=== PATIENT | female | born 1940 | race Two or more races ===

== ENCOUNTER 2019-01-18 09:53 | Outpatient (CLI) | payer OTHER ==
[~2019-01-18 09:53] MED LIST: AMOX1TAB5 PO; CATAFLAM50 MG PO
== END 2019-01-18 10:04 | disposition home or self-care (01) ==
LOC: MRI 09:53
DX: H53.133 Sudden visual loss, bilateral (principal); R47.81 Slurred speech; C71.9 Malignant neoplasm of brain, unspecified; R55 Syncope and collapse
CPT/HCPCS: 70553; A9579; 70552

== ENCOUNTER 2019-04-11 08:22 | Outpatient (CLI) | payer OTHER | END 2019-04-11 08:31 | disposition home or self-care (01) | LOC: TOM 08:22 | DX: G45.3 Amaurosis fugax (principal) | CPT/HCPCS: 70496; 70498; Q9965 ==

== ENCOUNTER 2020-06-20 11:02 | Outpatient (CLI) | payer OTHER | END 2020-06-20 11:05 | disposition home or self-care (01) | LOC: SONOGRAMA 11:02 | PROVIDERS: ATTEND Pathology Anatomic Pathology & Clinical Pathology | DX: E04.1 Nontoxic single thyroid nodule (principal) ==

== ENCOUNTER 2023-12-02 15:09 | Inpatient (IN) | payer OTHER ==
[~2023-12-02] VITALS: Ht 147.3 cm; Wt 45.4 kg
[2023-12-02] MEDS ORDERED: PANTOPRAZOLE SO20 MG PO (15:41)
[2023-12-02] MEDS ORDERED: METROPOLOL (15:41)
[2023-12-02] MEDS ORDERED: BETIMOL5 ML (15:41)
[2023-12-02] MEDS ORDERED: ATORVASTATIN CA10 MG PO (15:42)
[2023-12-02] MEDS ORDERED: PRESERVISION A1 EAC1 (15:42)
[2023-12-02] MEDS ORDERED: PLAVIX75 MG (15:42)
--- NOTE | 2023-12-02 15:45 | NUR ---
PTE ALERTA Y ORIENTADA X3, VIENE CON REFERIDO DE LA DRA. MAKI POR LEFT FEMORAL FRACTURE. SE PRESENTA REFERIDO A . SE PAO SV Y SE UBICA
[2023-12-02] MEDS ORDERED: 0.9 % SODIUM CHLORIDE 1,000 ML IV SCH ×2 (17:15→17:30)
[2023-12-02] MEDS ORDERED: MORPHINE SULFATE 4 MG/ML CARTRIDGE IV ONE (17:15)
[2023-12-02] MEDS ORDERED: FAMOTIDINE/PF 20 MG in 0.9 % SODIUM CHLORIDE 8 ML IV PUSH SCH (17:20)
--- NOTE | 2023-12-02 17:25 | NUR ---
SE MANEJA PTE, DEION DOCUMENTACION DE ADMISION
[2023-12-02] MEDS ORDERED: ACETAMINOPHEN 500 MG GEL..CAP PO PRN (17:30)
[2023-12-02] MEDS ORDERED: ONDANSETRON HCL 4 MG in 0.9 % SODIUM CHLORIDE 50 ML IV PRN (17:30)
[2023-12-02] MEDS ORDERED: OxyCODONE HCL/APAP UD (PERCOCET) PO PRN (17:30)
[2023-12-02 18:02] LABS: PH,URINE 7.5 (5.0-8.0); URINE APPEARANCE Turbid; URINE BILIRRUBIN Negative (NEGATIVE); URINE BLOOD Moderate; URINE COLOR Yellow; URINE GLUCOSE Negative (NEGATIVE); URINE LEUKOCYTE Large; URINE NITRATE Negative; URINE PROTEIN Trace (NEGATIVE)
[2023-12-02 18:06] LABS: URINE EPITHELIAL CELLS 10.8 uL (0.0-38.8); URINE RBC 419.5 uL (0.0-20.8)
[2023-12-02 18:15] LABS: HEMATOCRIT 34.7 % (36.0-45.00); HEMOGLOBIN 11.6 g/dL (12.0-15.00); MEAN CELL VOLUME 99.2 fL (80.00-100.00); MEAN CORPUSCULAR HGB CONC 33.3 g/dl (32.0-36.0); PLATELET COUNT 423 K/uL (150-450); RED CELL DISTRIBUTION WIDTH 13.4 % (11.5-14.5)
[2023-12-02 18:37] LABS: URINE BACTERIA > 9821.2 uL (0.0-1933); URINE CRYSTALS FEW /HPF
[2023-12-02 18:50] LABS: BILIRUBIN TOTAL 0.89 mg/dL (0.3-1.2); CREATININE SERUM 0.78 mg/dL (0.55-1.02); GFR 70.36; GLOBULINA 3.5 G/DL (2.4-3.5); POTASSIUM 3.63 mEq/L (3.5-5.1); TOTAL PROTEIN 7.5 gm/dL (6.4-8.2)
[2023-12-02 19:43] LABS: INR 1.05
[2023-12-02] MEDS ORDERED: CEFTRIAXONE SODIUM 2,000 MG in 0.9 % SODIUM CHLORIDE 100 ML IV SCH (21:15)
[2023-12-02] MEDS ORDERED: CEFTRIAXONE SODIUM 2,000 MG VIAL ONE (21:58)
[2023-12-03] MEDS ORDERED: FAMOTIDINE/PF 20 MG/2 ML VIAL ONE (08:27)
[2023-12-03] MEDS ORDERED: METOPROLOL SUCCINATE 25 MG TAB.SR.24H PO SCH (09:00)
[2023-12-03] MEDS ORDERED: ATORVASTATIN CALCIUM 10 MG TABLET PO SCH (09:00)
[2023-12-03] MEDS ORDERED: CEFAZOLIN SODIUM 1,000 MG VIAL IV SCH (11:00)
[2023-12-03] MEDS ORDERED: VANCOMYCIN HCL 1,000 MG VIAL ONE (12:12)
[2023-12-03] MEDS ORDERED: TRANEXAMIC ACID 100MG/1ML (1000MG) AMPUL IV ONE (12:15)
[2023-12-03] MEDS ORDERED: CEFAZOLIN SODIUM 1,000 MG VIAL ONE (13:59)
[2023-12-03] MEDS ORDERED: PANTOPRAZOLE SODIUM 40 MG TABLET.DR PO SCH (14:19)
[2023-12-03] MEDS ORDERED: MEPERIDINE HCL/PF 50 MG/ML VIAL IM PRN (14:30)
[2023-12-03] MEDS ORDERED: TRAMADOL HCL 50 MG TABLET PO PRN (14:30)
[2023-12-03] MEDS ORDERED: PROMETHAZINE HCL 50 MG/ML AMPUL IM PRN (14:30)
[2023-12-03] MEDS ORDERED: ONDANSETRON HCL 2 MG/ML VIAL IV PRN (14:30)
[2023-12-03] MEDS ORDERED: ONDANSETRON 4 MG TAB.RAPDIS PO PRN (14:30)
[2023-12-03] MEDS ORDERED: TRANEXAMIC ACID 100MG/1ML (1000MG) AMPUL IV SCH ×2 (14:45)
[2023-12-03] MEDS ORDERED: ACETAMINOPHEN 325 MG TABLET PO SCH (17:00)
[2023-12-04] MEDS ORDERED: RIVAROXABAN 10 MG TAB PO SCH (09:00)
[2023-12-04 10:48] LABS: HEMATOCRIT 33.8 % (36.0-45.00); HEMOGLOBIN 11.5 g/dL (12.0-15.00); MEAN CELL VOLUME 97.2 fL (80.00-100.00); MEAN CORPUSCULAR HGB CONC 33.9 g/dl (32.0-36.0); PLATELET COUNT 341 K/uL (150-450); RED BLOOD COUNT 3.48 M/uL (4.00-6.00); RED CELL DISTRIBUTION WIDTH 13.5 % (11.5-14.5)
[2023-12-05] MEDS ORDERED: FAMOTIDINE/PF 20 MG/2 ML VIAL ONE (07:28)
[2023-12-05] MEDS ORDERED: SENNA/DOCUSATE SODIUM 1 TAB TABLET PO SCH (09:00)
[2023-12-07] MEDS ORDERED: FAMOtidine 20 MG TABLET PO SCH (09:00)
== END 2023-12-07 13:48 | DRG 482 ==
LOC: ER 15:09 → SURH 19:10
PROVIDERS: Emergency Medicine; General Practice; Orthopaedic Surgery; ADMIT Internal Medicine; ATTEND Internal Medicine
PROC: 0QS706Z Reposition Left Upper Femur with Intramedullary Internal Fixation Device, Open Approach (ICD-10-PCS; principal; 2023-12-03 11:00)
DX: S72.002A Fracture of unspecified part of neck of left femur, initial encounter for closed fracture (principal)

== ENCOUNTER 2023-12-30 07:51 | Outpatient (CLI) | payer OTHER ==
[~2023-12-30 07:51] MED LIST changes: +ATORVASTATIN CA10 MG PO; +BETIMOL5 ML; +METROPOLOL; +PANTOPRAZOLE SO20 MG PO; +PLAVIX75 MG; +PRESERVISION A1 EAC1
== END 2023-12-30 07:57 | disposition home or self-care (01) ==
LOC: RAD 07:51
PROVIDERS: ATTEND Orthopaedic Surgery
DX: S72.042D Displaced fracture of base of neck of left femur, subsequent encounter for closed fracture with routine healing (principal)

== ENCOUNTER 2024-08-14 11:30 | Outpatient (CLI) | payer OTHER | END 2024-08-14 11:35 | disposition home or self-care (01) | LOC: SONOGRAMA 11:30 | PROVIDERS: ATTEND Pathology Anatomic Pathology | DX: D34 Benign neoplasm of thyroid gland (principal); E07.89 Other specified disorders of thyroid; E04.2 Nontoxic multinodular goiter ==

== ENCOUNTER → 2024-08-14 12:05 | Outpatient (CLI) | payer OTHER | END | disposition home or self-care (01) | LOC: LAB 12:05 | PROVIDERS: ATTEND Orthopaedic Surgery | DX: E56.1 Deficiency of vitamin K (principal) ==